=== PATIENT | male | born 2000 | race African-American/Black ===

== ENCOUNTER → 2018-10-01 | Outpatient (CLI) | payer OTHER ==
[~2018-10-01] MED LIST: METHACHOLINE KIT (J7674) INH ONE
--- NOTE | 2018-10-01 10:37 | PFTRPT ---
Site: [facility], [address] [place] [address], [address] ID: [id number] Name: BRAULIO XIAO Visit Date: 10/01/2018 Second ID: [id number] Referring Doctor: Sarbjit Rasheed Reviewing Doctor: Nicholas Peña MD Medical Reception: Dawna BIRD RRT Age: 18 : 2000 Sex: Male Race: <Unspecified> Height: 69.00 Inches Weight: 160.00 Lbs BSA: 1.88 Order IDs: [id number] Requested Test(s): <RESP-PFT.DLCO> Diagnosis: ASTHMA test meet the ATS standards for acceptability and repeatability. Review Status: Not Reviewed Pre-Bronch Post-Bronch Pred Actual %Pred Actual %Chng SPIROMETRY FVC (L) 5.43 4.04 74 FEV1 (L) 4.55 3.45 75 FEV1/FVC (%) 84 85 101 FEF 25% (L/sec) 8.16 6.32 77 FEF 50% (L/sec) 5.71 3.98 69 FEF 75% (L/sec) 2.27 1.99 87 FEF 25-75% (L/sec) 4.86 3.61 74 FEF Max (L/sec) 9.87 6.93 70 FIVC (L) 3.75 FIF 50% (L/sec) 5.75 4.71 81 FIF Max (L/sec) 4.81 MVV (L/min) 187 122 65 Expiratory Time (sec) 6.65 Back Extrap Vol (L) 0.17 Time To FEFmax (sec) 0.116 LUNG VOLUMES SVC (L) 5.30 3.91 73 IC (L) 3.50 3.13 89 ERV (L) 1.80 0.79 43 TGV (L) 3.17 3.00 94 RV (Pleth) (L) 1.37 2.21 161 TLC (Pleth) (L) 6.67 6.13 91 RV/TLC (Pleth) (%) 20 36 180 DIFFUSION DLCOunc (ml/min/mmHg) 37.07 32.62 87 DL/VA (ml/min/mmHg/L) 5.56 6.44 115 VA (L) 6.67 5.06 75 BHT (sec) 9.68 IVC (L) 3.72 TLC (SB) (L) 5.21 AIRWAYS RESISTANCE Raw (cmH2O/L/s) 1.45 1.23 84 Gaw (L/s/cmH2O) 1.03 0.81 79 sRaw (cmH2O*s) 4.76 3.36 70 sGaw (1/cmH2O*s) 0.20 0.30 148
--- NOTE | 2018-10-01 11:10 | PFTRPT ---
Site: [facility], [address] [place], [address] ID: [id number] Name: BRAULIO XIAO Visit Date: 10/01/2018 Second ID: [id number] Referring Doctor: Sarbjit Rasheed Reviewing Doctor: Nicholas Peña MD [employer]: Dawna BIRD RRT Age: 18 : 2000 Sex: Male Race: <Unspecified> Height: 69.00 Inches Weight: 160.00 Lbs BSA: 1.88 Order IDs: [id number] Requested Test(s): <RESP-PFT.METH CHAL> Diagnosis: ASTHMA of albuterol for postbronchodilator. Review Status: Not Reviewed Pre-Bronch Post-Bronch Pred Actual %Pred Actual %Chng SPIROMETRY FVC (L) 5.43 3.89 71 4.05 4 FEV1 (L) 4.55 3.45 75 3.30 -4 FEV1/FVC (%) 84 89 105 81 -8 FEF 25% (L/sec) 8.16 6.11 74 6.68 9 FEF 50% (L/sec) 5.71 4.05 70 3.68 -9 FEF 75% (L/sec) 2.27 2.15 94 1.82 -15 FEF 25-75% (L/sec) 4.86 3.62 74 3.38 -6 FEF Max (L/sec) 9.87 6.18 62 7.14 15 FIVC (L) 3.66 2.36 -35 FIF 50% (L/sec) 5.75 3.90 67 4.65 19 FIF Max (L/sec) 4.25 4.93 16 Expiratory Time (sec) 5.68 3.39 -40 Back Extrap Vol (L) 0.13 0.15 16 Time To FEFmax (sec) 0.132 0.103 -22
== END ==
LOC: M CARPUL 10:12
PROVIDERS: ATTEND Emergency Medicine
DX: J45.40 Moderate persistent asthma, uncomplicated (principal)
CPT/HCPCS: 94010; 94070; 94726; 94729; J7674